=== PATIENT | female | born 1960 | race Caucasian/White ===

== ENCOUNTER → 2024-03-27 17:21 | Outpatient (REF) | payer OTHER, SELFPAY | LOC: WDC 17:21 | PROVIDERS: ATTENDING PHYSICIAN Nurse Practitioner Family | DX: Z12.31 Encounter for screening mammogram for malignant neoplasm of breast (principal); Z12.39 Encounter for other screening for malignant neoplasm of breast | CPT/HCPCS: 77063; 77067 ==

== ENCOUNTER 2024-09-03 06:17 | Day surgery (SDC) | payer OTHER, SELFPAY ==
[2024-09-03 12:30] VITALS: BMI 35.2
[2024-09-03 12:49] VITALS: BMI 35.2
[2024-09-03 12:50] VITALS: BP 141/83
[2024-09-03 15:02] VITALS: BP 99/72
== END 2024-09-03 15:43 | disposition home or self-care (01) ==
LOC: GI 06:17
PROVIDERS: ATTENDING PHYSICIAN Internal Medicine Gastroenterology
DX: Z09 Encounter for follow-up examination after completed treatment for conditions other than malignant neoplasm (principal); Z86.0100 Personal history of colon polyps, unspecified; K64.0 First degree hemorrhoids
CPT/HCPCS: 45380; 88305

== ENCOUNTER → 2025-04-01 17:01 | Outpatient (REF) | payer MEDICARE, OTHER, SELFPAY | LOC: WDC 17:01 | PROVIDERS: ATTENDING PHYSICIAN Nurse Practitioner Family | DX: Z12.31 Encounter for screening mammogram for malignant neoplasm of breast (principal); Z12.39 Encounter for other screening for malignant neoplasm of breast | CPT/HCPCS: 77063; 77067 ==

== ENCOUNTER → 2025-07-28 07:53 | Outpatient (REF) | payer MEDICARE, OTHER, SELFPAY | LOC: RAD 07:53 | PROVIDERS: ATTENDING PHYSICIAN Nurse Practitioner Family | DX: Z78.0 Asymptomatic menopausal state (principal) | CPT/HCPCS: 77080 ==